=== PATIENT | female | born 1980 | race Caucasian/White ===

== ENCOUNTER 2019-06-09 06:13 | Inpatient (IN) | payer BC ==
[~2019-06-09] VITALS: Ht 167.6 cm; Wt 77.6 kg
--- NOTE | 2019-06-09 06:37 | NUR ---
SEEN AND EXAMINED BY
--- NOTE | 2019-06-09 06:50 | NUR ---
PT CAME TO ER VIA RA C/O POST-ICTAL SYMPTOMS. PT'S STATES THAT HER SEIZURE OCCURRED IN BED WHICH LASTED ABOUT A FULL MINUTE. THE STATES THAT SHE URINATED ON HERSELF AND HAS BEEN SMOKING MARIJUANA EVERYDAY. PT IS AAOX2. PT NOT IN ANY DISTRESS. NO SOB. BREATHING EVENLY AND UNLABORED. CONNECTED TO POLICY ADVISOR.
[2019-06-09] MEDS ORDERED: ONDANSETRON HCL/PF 4 MG/2 ML VIAL ONE ×2 (06:51→08:12)
[2019-06-09 06:56] LABS: BASOPHILS # (AUTO) 0.1 /CMM (0.0-0.2); BASOPHILS % (AUTO) 0.8 % (0.0-2.0); EOSINOPHILS % (AUTO) 4.3 % (0.0-6.0); HEMATOCRIT 41 % (33-45); HEMOGLOBIN 13.9 g/dL (11.5-14.8); LYMPHOCYTES # (AUTO) 1.9 /CMM (0.8-4.8); LYMPHOCYTES % (AUTO) 15.8 % (20.0-44.0); MEAN CORPUSCULAR HGB CONC 34 g/dl (31.0-36.0); MEAN CORPUSCULAR VOLUME 101 fL (82-100); MONOCYTES # (AUTO) 0.5 /CMM (0.1-1.30); MONOCYTES % (AUTO) 4.3 % (2.0-12.0); NEUTROPHILS # (AUTO) 9.2 /CMM (1.8-8.9); NEUTROPHILS % (AUTO) 74.8 % (43.0-81.0); PLATELET COUNT (AUTO) 274 /CMM (150-450); RED BLOOD CELL COUNT(AUTO) 4.05 MIL/uL (4.0-5.2); WHITE BLOOD COUNT (AUTO) 12.3 K/uL (4.3-11.0)
--- NOTE | 2019-06-09 06:56 | NUR ---
PT SENT TO CT
[2019-06-09] MEDS ORDERED: ONDANSETRON HCL/PF - ER 4 MG/2 ML VIAL IV ONE (07:00)
[2019-06-09] MEDS ORDERED: IV NS 0.9% 1,000 ML BAG IV ONE (07:00)
[2019-06-09] MEDS ORDERED: ACETAMINOPHEN ES 500 MG TABLET PO ONE (07:00)
--- NOTE | 2019-06-09 07:05 | NUR ---
PT RETURNED FROM CT
[2019-06-09] MEDS ORDERED: ACETAMINOPHEN ES 500 MG TABLET ONE (07:07)
[2019-06-09 07:08] LABS: CALCIUM, SERUM 9.1 mg/dL (8.5-10.1); CARBON DIOXIDE 25 mmol/L (21-32); CHLORIDE 104 mmol/L (98-107); CREATININE 0.7 mg/dL (0.6-1.3); GLUCOSE 114 mg/dL (74-106); POTASSIUM 3.9 mmol/L (3.5-5.1); SODIUM SERUM 140 mmol/L (136-145); UREA NITROGEN, BLOOD 12 mg/dL (7-18)
[2019-06-09 07:14] LABS: ALANINE AMINOTRANSFERASE 27 U/L (12-78); ALBUMIN 3.9 g/dL (3.4-5.0); ALCOHOL, BLOOD < 3 mg/dL (0-0); ALKALINE PHOSPHATASE 61 U/L (46-116); ASPARTATE AMINOTRANSFERASE 13 U/L (15-37); BILIRUBIN,DIRECT 0.2 mg/dL (0.0-0.2); BILIRUBIN,TOTAL 0.7 mg/dL (0.2-1.0); TOTAL PROTEIN, SERUM 7.6 g/dL (6.4-8.2)
[2019-06-09] MEDS ORDERED: MORPHINE SULFATE INJ 2 MG/ML DISP.SYRIN IV ONE (08:00)
[2019-06-09] MEDS ORDERED: LEVETIRACETAM (500MG) 1,000 MG in IV NS 0.9% 100 ML IV SCH (08:00)
[2019-06-09] MEDS ORDERED: MORPHINE SULFATE INJ 4 MG/ML DISP.SYRIN ONE (08:04)
--- NOTE | 2019-06-09 08:22 | NUR ---
PT ASSUMED CARE. PT AAOX4, VSS. MEDICATED FOR LANE & NAUSEA PER ERMD ORDER, PT LISA WELL. DENIES CP, SOB, DIZZINESS, WEAKNESS OR ANY OTHER DISCOMFORT. SZ PRECAUTIONS INTACT, WILL CONT TO MONITOR.
[2019-06-09] MEDS ORDERED: LIDOCAINE HCL/PF 1% 30 ML SDV ONE (08:27)
--- NOTE | 2019-06-09 09:00 | NUR ---
PT TO RADIOLOGY DEPT FOR LUMBAR PUNCTURE VIA GURNEY.
--- NOTE | 2019-06-09 09:49 | NUR ---
PT BACK FROM CT. DENIES CP, SOB, DIZZINESS, NAUSEA @ THIS TIME. PT'S LANE 09/14 & LISA WELL. WILL CONT TO MONITOR.
[2019-06-09 10:30] LABS: CSF GLUCOSE 62 mg/dL (40-70); CSF PROTEIN 28.8 mg/dL (15-45)
--- NOTE | 2019-06-09 11:01 | NUR ---
CALLED NEUROLOGY INTAKE RN.
[2019-06-09] MEDS ORDERED: VALA500T PO (11:27)
--- NOTE | 2019-06-09 12:00 | NUR ---
CALLED NURSING SUP FOR BED
--- NOTE | 2019-06-09 12:57 | NUR ---
PT AAO4, VSS, RR EVEN & UNLABORED. DENIES CP, SOB, DIZZINESS, N/V @ THIS TIME. PT LANE 06/16 & LISA WELL. WILL CONT TO MONITOR.
--- NOTE | 2019-06-09 13:15 | NUR ---
REPORT GIVEN TO SHAMEKA CAUSEY FOR SANJANA.
[2019-06-09] MEDS ORDERED: HYDROCODONE/APAP 10/325MG 1 EA TABLET PO PRN (13:30)
[2019-06-09] MEDS ORDERED: ONDANSETRON HCL/PF 4 MG/2 ML VIAL IVP PRN (13:30)
[2019-06-09] MEDS ORDERED: Z GUARD REMEDY 2 OZ OINT TP PRN (13:30)
[2019-06-09] MEDS ORDERED: MAG HYDROX/AL HYDROX/SIMETH 30 ML UDC PO PRN (13:30)
[2019-06-09] MEDS ORDERED: ACETAMINOPHEN 325 MG TABLET PO PRN (13:30)
[2019-06-09] MEDS ORDERED: MAGNESIUM HYDROXIDE 30 ML UDC PO PRN (13:30)
--- NOTE | 2019-06-09 14:00 | NUR ---
RN NOTES Patient received at this time from ER.
[2019-06-09 14:06] LABS: APPEARANCE,URINE CLOUDY (CLEAR); BILIRUBIN,URINE NEGATIVE (NEGATIVE); BLOOD, URINE NEGATIVE Ery/uL (NEGATIVE); COLOR,URINE YELLOW (YELLOW); KETONES,URINE 15 (NEGATIVE); NITRITE, URINE NEGATIVE (NEGATIVE); PH,URINE 6.5 (5.0-8.0); PROTEIN,URINE NEGATIVE (NEGATIVE); UGLUCOSE NEGATIVE (NEGATIVE); UROBILINOGEN,URINE 0.2 EU/dL (0.2)
[2019-06-09] MEDS: IV NS 0.9% 1,000 ML IV PRN (14:15)
[2019-06-09] MEDS: HYDROCODONE/APAP 5/325MG 1 EACH TABLET PO PRN (14:36)
[2019-06-09 14:56] LABS: LEUKOCYTE ESTERASE ,URINE TRACE (NEGATIVE)
[2019-06-09 14:57] LABS: BACTERIA,URINE 2+ /HPF (None Seen); RBC,URINE 0-2 /HPF (0-2); SQUAMOUS EPITHELIAL CELL,UR Moderate /HPF (None Seen)
[2019-06-09 16:00] VITALS: BP 108/63
[2019-06-09] MEDS: CEFTRIAXONE 1 G in IV D5W 50 ML IV SCH (17:31)
--- NOTE | 2019-06-09 18:37 | NUR ---
RN CLOSING NOTES Patient remains on room air, no sob noted, a/o x4. Patient remains with R ac 20 with 75 ml per hour IV NS. Patient denies headache or pain at this time. Patient vomitted once around 1730 and patient stated that she felt better after. Bed at the lowest setting, call light within reach, side rails up x2.
--- NOTE | 2019-06-09 19:36 | NUR ---
RECEIVE PT IN BED A/O X 4 STABLE AND NOT IN DISTRESS. SAFETY MEASURES AT ALL TIMES WILL CONTINUE TO MONITOR
[2019-06-09 20:00] VITALS: BP 124/69
[2019-06-09] MEDS: LEVETIRACETAM (500MG) 500 MG in IV NS 0.9% 100 ML IV SCH (21:35)
[2019-06-10] MEDS: IV NS 0.9% 1,000 ML IV PRN (03:52)
--- NOTE | 2019-06-10 06:29 | NUR ---
PT SLEPT WELL, NO S/S OF DISTRESS, KEPT CLEAN, DRY AND COMFORTABLE. NEEDS ATTENDED AND ANTICIPATED. NO SEIZURE ACTIVITY THROUGHOUT THE SHIFT. SAFETY MEASURES AT ALL TIMES. WILL ENDORSE NEXT SHIFT PLAN OF CARE
--- NOTE | 2019-06-10 06:30 | NUR ---
PATIENT NO COMPLAIN OF PAIN THROUGHOUT THE SHIFT
--- NOTE | 2019-06-10 07:30 | NUR ---
MS/RN Opening note Patient received resting in bed, A/O x5, showing no signs of acute distress or SOB, saturating >95% on RA. IV line is clean and intact. is at the bedside. No new concerns and no complaints of pain at this time. Bed is in lowest position, side rails x2 in supine position, call light is within reach and patient is aware of how to call for assistance when needed. Seizure precautions enforced. Will continue with plan of care.
[2019-06-10 08:00] VITALS: BP 112/52
[2019-06-10] MEDS: HYDROCODONE/APAP 5/325MG 1 EACH TABLET PO PRN ×2 (08:21→14:16)
[2019-06-10] MEDS: LEVETIRACETAM (500MG) 500 MG in IV NS 0.9% 100 ML IV SCH ×2 (08:21→21:03)
[2019-06-10] MEDS: VALACYCLOVIR HCL 500 MG TABLET PO SCH (08:21)
[2019-06-10 08:44] LABS: BASOPHILS # (AUTO) 0.1 /CMM (0.0-0.2); BASOPHILS % (AUTO) 0.7 % (0.0-2.0); CALCIUM, SERUM 8.5 mg/dL (8.5-10.1); CREATININE 0.6 mg/dL (0.6-1.3); EOSINOPHILS % (AUTO) 4.5 % (0.0-6.0); HEMATOCRIT 37 % (33-45); HEMOGLOBIN 12.7 g/dL (11.5-14.8); LYMPHOCYTES # (AUTO) 2.2 /CMM (0.8-4.8); LYMPHOCYTES % (AUTO) 23.2 % (20.0-44.0); MAGNESIUM 1.9 mg/dL (1.8-2.4); MEAN CORPUSCULAR HGB CONC 34 g/dl (31.0-36.0); MEAN CORPUSCULAR VOLUME 102 fL (82-100); MONOCYTES # (AUTO) 0.6 /CMM (0.1-1.30); MONOCYTES % (AUTO) 6.7 % (2.0-12.0); NEUTROPHILS # (AUTO) 6.3 /CMM (1.8-8.9); NEUTROPHILS % (AUTO) 64.9 % (43.0-81.0); PHOSPHORUS 2.5 mg/dL (2.5-4.9); PLATELET COUNT (AUTO) 233 /CMM (150-450); POTASSIUM 4.5 mmol/L (3.5-5.1); RED BLOOD CELL COUNT(AUTO) 3.68 MIL/uL (4.0-5.2); WHITE BLOOD COUNT (AUTO) 9.6 K/uL (4.3-11.0)
[2019-06-10 08:53] LABS: THYROID STIMULATING HORMONE 1.411 uIU/mL (0.358-3.74)
[2019-06-10 16:00] VITALS: BP 114/68
[2019-06-10] MEDS: CEFTRIAXONE 1 G in IV D5W 50 ML IV SCH (16:25)
--- NOTE | 2019-06-10 17:28 | NUR ---
MS/RN note Patient asks when are the results for the EEG coming back because she wants to go home today. Informed the patient that once the neurologist reviews the results he will discuss the results with the patient. Contacted Dr. Mendoza to ask if patient is cleared per neuro for DC. In addition, I contacted case management to speak with the patient because they had questions about their insurance. Addendum: 06/10/19 at 4428 by GWENDOLYN QUICK RN ---per Dr. Mendoza, patient is cleared per neuro for DC
--- NOTE | 2019-06-10 18:46 | NUR ---
MS/RN Closing note Patient is resting in bed, A/O x4, showing no signs of acute distress or SOB, saturating >95% on RA. is at the bedside. IV line is clean and intact running NS @ 75ml/hr. IV line is clean and intact. Patient is ambulatory and has BRP. Bed is in lowest position, side rails x2 in upright position, call light is within reach and patient is aware of how to call for assistance when needed. Safety and seizure precautions enforced. Will endorse to nightclub manager.
--- NOTE | 2019-06-10 19:32 | NUR ---
MS/RN OPENING NOTES RECEIVED PATIENT IN BED, AWAKE, ALERT X3, ABLE TO VERBALIZE NEEDS, FAMILY AT BEDSIDE, RESPIRATIONS EVEN AND UNLABORED, ON IV FLUIDS, RIGHT HAND GAUGE 20 PATENT, WILL MONITOR. BED LOCKED, CALL LIGHTS WITHIN REACH. SKIN WARM TO TOUCH. BELONGINGS WITHIN REACH, WILL MONITOR, DISCUSSED PLAN OF CARE. WILL MONITOR.
[2019-06-10 20:00] VITALS: BP 122/67
--- NOTE | 2019-06-10 20:10 | NUR ---
MS/RN NOTES PER FAMILY AND PATIENT WOULD LIKE TO FOLLOW UP WITH MD/NEURO REGARDING RESULT OF TEST EEG.
--- NOTE | 2019-06-11 05:29 | NUR ---
MS/RN NOTES PATIENT REQUESTED FOR MEDICATION FOR HEADACHE, TYLENOL 650 MG PO GIVEN.
--- NOTE | 2019-06-11 06:53 | NUR ---
316-2 MS/RN NOTES PATIENT RESTING IN BED, ASLEEP, ON IVFLUIDS, IV SITE ON RIGHT HAND PATENT. KEPT COMFORTABLE, OFFERED AND PROVIDED FLUIDS/SNACK.FAMILY AT BEDSIDE, WILL MONITOR, WILL ENDORSE TO AM RN FOR SANJANA. ALERT, ORIENTED X3, ABLE TO VERBALIZE NEEDS, RESPIRATIONS EVEN AND UNLABORED, BED LOCKED, CALL LIGHTS WITHIN REACH.
--- NOTE | 2019-06-11 07:51 | NUR ---
MS RN OPENING NOTE PATIENT IN BED RESTING COMFORTABLY. PATIENT BREATHING IS EVEN AND UNLABORED. PATIENT IN NO ACUTE DISTRESS. NO SOB NOTED. PATIENT AT THE BEDSIDE. PATIENT NEEDS AND CONCERNS ADDRESSED. PATIENT IN NO PAIN AT THIS TIME. PATIENT BED IS LOCKED AND IN LOWEST POSITION. CALL LIGHT WITHIN REACH. WILL CONTINUE TO MONITOR.
[2019-06-11 08:00] VITALS: BP 121/65
[2019-06-11] MEDS: VALACYCLOVIR HCL 500 MG TABLET PO SCH (08:28)
[2019-06-11] MEDS: HYDROCODONE/APAP 5/325MG 1 EACH TABLET PO PRN (08:28)
[2019-06-11] MEDS ORDERED: LEVETIRACETAM (250 MG) 250 MG TABLET PO SCH (09:00)
[2019-06-11] MEDS ORDERED: LEVE500T9 PO (11:04)
[2019-06-11] MEDS ORDERED: CEPH-570 PO (11:04)
--- NOTE | 2019-06-11 12:39 | NUR ---
MS EVENT MANAGEMENT CONSULTANT NOTE PATIENT MEDICALLY STABLE FOR DISCHARGE. PATIENT IN NO ACUTE DISTRESS. NO SOB NOTED. PATIENT BREATHING IS EVEN AND UNLABORED. DC INSTRUCTIONS PROVIDED TO PATIENT AND . PATIENT AND VERBALIZED UNDERSTANDING. PATIENT PROVIDED WITH ELECTRONIC DISK OF PROCEDURE RESULTS. PATIENT IV REMOVED. ID BAND REMOVED. PATIENT BELONGINGS LIST SIGNED AND PATIENT HAS ALL BELONGINGS WITH HER. PATIENT KEPT CLEAN, DRY AND COMFORTABLE THROUGHOUT SHIFT. SKIN ASSESSED, NO NEW SKIN BREAKDOWN NOTED. NEEDS AND CONCERNS ADDRESSED. PATIENT GOING BACK HOME WITH BY CAR. MD AWARE OF DISCHARGE.
== END 2019-06-11 12:30 | disposition home or self-care (01) | DRG 101 ==
LOC: ER 06:16 → MED 12:54
PROVIDERS: ADMIT Nurse Practitioner Acute Care; ATTEND Nurse Practitioner Acute Care
DX: R56.9 Unspecified convulsions (principal); N39.0 Urinary tract infection, site not specified; E87.2 Acidosis; Z87.891 Personal history of nicotine dependence; Z87.440 Personal history of urinary (tract) infections; F12.90 Cannabis use, unspecified, uncomplicated; D72.829 Elevated white blood cell count, unspecified
CPT/HCPCS: 36415; 62270; 70450-TC; 71045-TC; 80048-TC; 80061-TC; 80076-TC; 80305; 81000-TC; 83605-TC; 83735-TC; 84100-TC; 84443-TC; 84702-TC; 84703-TC; 85025-TC; 85730-TC; 86592; 87070-TC; 87081-TC; 87086-TC; 89051-TC; 95819-TC; G0378; G0480; J0696; J1953; J2270; J2405; J3490; J7030; J7060